=== PATIENT | male | born 1960 | race Caucasian/White ===

== ENCOUNTER 2018-06-29 07:34 | Outpatient (CLI) | payer BC ==
--- NOTE | 2018-06-29 09:45 | ULT ---
ABDOMINAL ULTRASOUND: History: Evaluate spleen size and evaluate for hepatosplenomegaly. Date: 06-29-18 FINDINGS: Multiple longitudinal and transverse images of the abdomen is obtained using a multihertz curvilinear transducer. Real-time, color flow, and spectral waveform doppler analysis demonstrates the liver and spleen to be of normal contour, axis and size. No evidence of hepatosplenomegaly. No evidence of asc ites is seen. The hepatic parenchyma is unremarkable. The gallbladder has been surgically removed. The common bile duct is of normal size measuring 2.9 mm. The visualized portion of the pancreas is unremarkable. Both kidneys visualized with no evidence of hydronephrosis or masses or lesions. Right kidney measure s 11.0 and left kidney 11.1 cm from pole to pole. Normal hepatopedal flow seen in the portal system. Abdominal aorta and inferior vena cava are unremarkable. IMPRESSION: Status post cholecystectomy. No significant evidence of intraabdominal or pelvic pathology seen. POS: [facility]
== END 2018-06-29 07:35 | disposition home or self-care (01) ==
LOC: BICULT 07:34
PROVIDERS: ATTEND Internal Medicine Medical Oncology
DX: D72.818 Other decreased white blood cell count (principal); Z90.49 Acquired absence of other specified parts of digestive tract
CPT/HCPCS: 76700